=== PATIENT | male | born 1980 | race Caucasian/White ===

== ENCOUNTER 2017-01-08 11:59 | Emergency (ER) | payer OTHER ==
[2017-01-08 12:32] VITALS: BP 124/72; PULSE 65; RESP 18; TEMP 98.9
--- NOTE | 2017-01-08 12:44 | ED ---
General Adult HPI - General Chief complaint: Dental/Oral Stated complaint: dental abscess Time Seen by Provider: 01/08/17 12:34 Source: patient, RN notes reviewed Mode of arrival: ambulatory Limitations: no limitations - History of Present Illness Initial comments: 36-year-old male who presents emergency room today with a chief complaint of increased dental pain. He does not that he's had some swelling to the left lower jaw line. He does admit to poor dental hygiene. He denies any other complaints symptoms. States he has states some drainage this morning. Patient denies any recent fever, chills, shortness of breath, chest pain, back pain, abdominal pain, nausea or vomiting, numbness or tingling, dysuria or hematuria, constipation or diarrhea, headaches or visual changes, or any other complaints. - Related Data Previous Rx's Medication Instructions Recorded Penicillin V Potassium [Pen Vee K] 500 mg PO QID 10 Days 01/08/17 Allergies Allergy/AdvReac Type Severity Reaction Status Date / Time No Known Allergies Allergy Verified 01/08/17 12:32 Review of Systems ROS Statement: Those systems with pertinent positive or pertinent negative responses have been documented in the HPI. ROS Other: All systems not noted in ROS Statement are negative. Past Medical History Past Medical History: No Reported History Past Surgical History: No Surgical Hx Reported Past Psychological History: No Psychological Hx Reported Smoking Status: Current every day smoker Past Alcohol Use History: Rare Past Drug Use History: None Reported General Exam - General Exam Comments Initial Comments: General: The patient is awake and alert, in no distress, and does not appear acutely ill. Eye: Pupils are equal, round and reactive to light, extra-ocular movements are intact. No nystagmus. There is normal conjunctiva bilaterally. No signs of icterus. Ears, nose, mouth and throat: There are moist mucous membranes and no oral lesions. Patient does have mild swelling to left lower jaw line. Tender to palpation in the gumline of tooth #19. Small amount of drainage seen coming from this area. Neck: The neck is supple, there is no tenderness or JVD. Cardiovascular: There is a regular rate and rhythm. No murmur, rub or gallop is appreciated. Respiratory: Lungs are clear to auscultation, respirations are non-labored, breath sounds are equal. No wheezes, stridor, rales, or rhonchi. Musculoskeletal: Normal ROM, no tenderness. Strength 5/5. Sensation intact. Pulses equal bilaterally 2+. Neurological: A&O x 3. CN II-XII intact, There are no obvious motor or sensory deficits. Coordination appears grossly intact. Speech is normal. Skin: Skin is warm and dry and no rashes or lesions are noted. Psychiatric: Cooperative, appropriate mood & affect, normal judgment. Limitations: no limitations Course Vital Signs 01/08/17 12:29 Temperature 98.9 F Pulse Rate 65 Respiratory 18 Rate Blood Pressure 124/72 O2 Sat by Pulse 100 Oximetry Medical Decision Making - Medical Decision Making Patient will be started on antibiotics. Advised follow-up with dentist. Disposition Clinical Impression: Dental abscess Disposition: HOME SELF-CARE Condition: Good Instructions: Dental Abscess (ED) Additional Instructions: Please use warm compresses to the area as discussed. Please used teabag inside the gum line to help pull out drainage. Please use antibiotic as prescribed follow-up dentist over the next 2 days. Prescriptions: Penicillin V Potassium [Pen Vee K] 500 mg PO QID 10 Days Referrals: None,Stated [Primary Care Provider] - 1-2 days Time of Disposition: 12:43
== END 2017-01-08 12:55 | disposition home or self-care (01) ==
LOC: EC 11:59
DX: K04.7 Periapical abscess without sinus (principal); F17.200 Nicotine dependence, unspecified, uncomplicated
CPT/HCPCS: 99282

== ENCOUNTER 2017-03-11 04:45 | Emergency (ER) | payer OTHER ==
[2017-03-11] MEDS ORDERED: ACET/COD 300 MG/30 MG STARTER PACK 6 TAB BTL PO STA (05:11)
[2017-03-11] MEDS ORDERED: PENICILLIN V POTASSIUM 250 MG TAB PO STA (05:11)
--- NOTE | 2017-03-11 05:16 | ED ---
General Adult HPI - General Chief complaint: ENT Stated complaint: Dental Pain Time Seen by Provider: 03/11/17 05:02 Source: patient, RN notes reviewed Mode of arrival: ambulatory Limitations: no limitations - History of Present Illness Initial comments: Patient is a pleasant 36-year-old male presenting to the emergency Department with dental pain. Symptoms have been present for the past couple of days. No fever. Patient has noticed some swelling of the left lower jaw. Patient did have similar problems and was in the emergency department a couple months ago. Patient has not yet follow-up with the dentist and is encouraged to do so. - Related Data Previous Rx's Medication Instructions Recorded Penicillin V Potassium [Pen Vee K] 500 mg PO QID 10 Days day 01/08/17 Penicillin V Potassium [Pen Vee K] 500 mg PO QID #40 tablet 03/11/17 Allergies Allergy/AdvReac Type Severity Reaction Status Date / Time No Known Allergies Allergy Verified 03/11/17 04:50 Review of Systems ROS Statement: Those systems with pertinent positive or pertinent negative responses have been documented in the HPI. ROS Other: All systems not noted in ROS Statement are negative. Constitutional: Denies: fever Eyes: Denies: eye pain ENT: Reports: dental pain. Denies: ear pain Respiratory: Denies: cough Cardiovascular: Denies: chest pain Endocrine: Denies: fatigue Gastrointestinal: Denies: abdominal pain Genitourinary: Denies: dysuria Musculoskeletal: Denies: back pain Skin: Denies: rash Neurological: Denies: weakness Past Medical History Past Medical History: No Reported History Past Surgical History: No Surgical Hx Reported Past Psychological History: No Psychological Hx Reported Smoking Status: Current every day smoker Past Alcohol Use History: Rare Past Drug Use History: None Reported General Exam Limitations: no limitations General appearance: alert, in no apparent distress Head exam: Present: atraumatic Eye exam: Present: normal appearance ENT exam: Present: other (Externally with left lower mandible swelling, mild. There is tenderness. Patient has poor dentition. There is swelling left lower premolar region.) Neck exam: Present: normal inspection Respiratory exam: Present: normal lung sounds bilaterally Cardiovascular Exam: Present: regular rate, normal rhythm GI/Abdominal exam: Present: soft. Absent: tenderness Neurological exam: Present: alert Psychiatric exam: Present: normal affect, normal mood Skin exam: Present: normal color Course Vital Signs 03/11/17 04:49 Temperature 98.6 F Pulse Rate 83 Respiratory 16 Rate Blood Pressure 133/72 O2 Sat by Pulse 100 Oximetry Procedures - Incision & Drainage Consent Obtained: verbal consent (Needle aspiration) Time Out Performed?: Yes Site: oral Anesthetic Used: lidocaine 1% Needle Aspiration Performed?: Yes (1 mL of purulent discharge obtained) I&D Drainage Obtained: Pus Disposition Clinical Impression: Dental abscess Disposition: HOME SELF-CARE Condition: Stable Instructions: Dental Abscess (ED) Additional Instructions: Please follow-up with dentist as soon as possible, please provide dental list follow-up. Please also follow-up with primary care physician in the next day or 2 for recheck. Get antibiotics filled and started this morning. Return for fever, increased pain or swelling, difficulty breathing, not tolerating fluids, worsening symptoms or other concerns. Prescriptions: Penicillin V Potassium [Pen Vee K] 500 mg PO QID #40 tablet Referrals: Marci Talavera MD [STAFF PHYSICIAN] - 1-2 days Time of Disposition: 05:16
[2017-03-11 05:18] VITALS: BP 133/72; PULSE 83; RESP 16; TEMP 98.6
== END 2017-03-11 05:38 | disposition home or self-care (01) ==
LOC: EC 04:45
DX: K04.7 Periapical abscess without sinus (principal); F17.200 Nicotine dependence, unspecified, uncomplicated
CPT/HCPCS: 41800; 87070; 87205; 99283